=== PATIENT | male | born 1940 | race Caucasian/White ===

== ENCOUNTER 2018-10-03 08:17 | Day surgery (SDC) | payer OTHER ==
[2018-10-03] MEDS ORDERED: LIDOCAINE 2% (SDV) 5 ML INJ INJ (08:18)
[2018-10-03] MEDS ORDERED: PROPOFOL 40 ML (08:57)
== END 2018-10-03 11:02 | disposition home or self-care (01) ==
LOC: GIL 08:17
DX: Z12.11 Encounter for screening for malignant neoplasm of colon (principal); D12.5 Benign neoplasm of sigmoid colon; K64.8 Other hemorrhoids; I10 Essential (primary) hypertension
CPT/HCPCS: 45380; 88305